=== PATIENT | female | born 1950 | race Caucasian/White ===

== ENCOUNTER 2019-01-19 20:25 | Emergency (ER) | payer MEDICARE ==
[2019-01-19 20:31] VITALS: BP 172/69
--- NOTE | 2019-01-19 20:35 | ED Physician Documentation ---
PD HPI UPPER EXT INJURY - Stated complaint Stated Complaint: RT THUMB INJURY - Chief complaint Chief Complaint: Ext Problem - History obtained from History obtained from: Patient - History of Present Illness Location: Right, Finger (thumb) Type of injury: Blunt / blow Where injury occurred: Other (property lot (she was helping clear the lot)) Timing - onset: Enter time (17:30), Today Timing - duration: Hours Timing - details: Abrupt onset Pain level now: 2 Improved by: Rest Worsened by: Moving, Palpating Associated symptoms: Swelling, Discolored Contributing factors: No: Anticoagulated Similar symptoms before: Has not had sx before Recently seen: Not recently seen - Additonal information Additional information: patient was moving a rock to clear a property lot. This was a large rock and she turned it to roll it away, but as it turned, the rock struck her right thumb. She was wearing gloves at the time but she felt that it pulled the thumb nail away from the nail bed to some extent (still appears intact but mild laxity when she removed the glove and inspected the thumb); her chief complaint is gradually worsening pain and swelling of the distal right thumb. She has had adequate pain control with ibuprofen Review of Systems Musculoskeletal: reports: Extremity pain, Extremity swelling Neurologic: denies: Focal weakness, Numbness PD PAST MEDICAL HISTORY - Past Medical History Past Medical History: No - Present Medications Home Medications: Ambulatory Orders Medication Instructions Recorded Confirmed No Known Home Medications 01/19/19 01/19/19 - Allergies Allergies/Adverse Reactions: Allergies Allergy/AdvReac Type Severity Reaction Status Date / Time Penicillins Allergy Rash Verified 01/19/19 20:31 PD ED PE NORMAL - Vitals Vital signs reviewed: Yes - General General: Alert and oriented X 3, No acute distress, Well developed/nourished - Neuro Neuro: No motor deficit, No sensory deficit PD ED PE EXPANDED - Extremities Extremities: Other (right thumb nail: nail slovenian in place but nail is intact and in place (at proximal nail fold as well as lateral nail folds) with only trace laxity when traction applied to distract from nailbed. ) ILIANA UE/Hands Visual: 1 - bruising, swelling, tenderness Results - Vitals Vitals: Vital Signs - 24 hr 01/19/19 20:28 Temperature 36.4 C L Heart Rate 77 Respiratory 18 Rate Blood Pressure 172/69 H O2 Saturation 95 Oxygen O2 Source Room air - Rads (name of study) right thumb xrays Radiology: Prelim report reviewed, See rad report PD MEDICAL DECISION MAKING - ED course Complexity details: reviewed results, re-evaluated patient, considered differential, d/w patient Departure - Departure Disposition: 01 Home, Self Care Clinical Impression: Contusion of thumb, right Condition: Good Instructions: ED Contusion Finger Comments: Wear the splint as needed for comfort. Discharge Date/Time: 01/19/19 21:43
--- NOTE | 2019-01-19 21:21 | XRAY Report ---
Reason: thumb injury, swollen/bruised/painful Procedure Date: 01/19/2019 Accession Number: [id number] / [id number] Procedure: XR - Finger(s) RT CPT Code: FULL RESULT: EXAM: RIGHT THUMBRADIOGRAPHY EXAM DATE: 01/19/2019 08:51 PM. CLINICAL HISTORY: Thumb injury, swollen/bruised/painful. COMPARISON: None. TECHNIQUE: 3 views. FINDINGS: Bones: Normal. No fracture or bone lesion. Joints: No dislocations. There is narrowing of the IP joint with subchondral sclerosis and marginal spurring. Also evident at the remaining DIP joints. Soft Tissues: Normal. No soft tissue swelling. IMPRESSION: 1. No fracture or dislocation. 2. Osteoarthritis. [facility]
== END 2019-01-19 21:43 | disposition home or self-care (01) ==
LOC: ED 20:25
DX: S60.011A Contusion of right thumb without damage to nail, initial encounter (principal); W20.8XXA Other cause of strike by thrown, projected or falling object, initial encounter; Y93.H2 Activity, gardening and landscaping; Y92.89 Other specified places as the place of occurrence of the external cause
CPT/HCPCS: 73140; 99282; 99283